=== PATIENT | male | born 1965 | race Caucasian/White ===

== ENCOUNTER 2021-10-06 13:22 | Inpatient (IN) | payer MEDICARE, MEDICAID ==
[~2021-10-06] VITALS: Ht 147.3 cm; Wt 95.0 kg
--- NOTE | 2021-10-06 17:06 | NUR ---
Patient oriented to room and call light. In no acute distress
--- NOTE | 2021-10-06 17:09 | NUR ---
Page Sent to doctor group pager promotional table spacer PAGER ID: [phone] MESSAGE: [id number] Huang. Direct admit just arrived and needs to be assigned a doctor. Thank you Heidy [phone]
[2021-10-06 17:11] VITALS: BP 174/70
[2021-10-06] MEDS ORDERED: acetaminophen 325mg tablet PO PRN (17:40)
[2021-10-06] MEDS ORDERED: morphine 2 MG/ML inj. syringe IV PRN (17:40)
[2021-10-06] MEDS ORDERED: ondansetron/PF 4mg/2ml inj IV PRN (17:40)
[2021-10-06] MEDS ORDERED: mag hydrox/Alum hydrox/simeth 30ml oral suspension PO PRN (17:40)
[2021-10-06] MEDS ORDERED: magnesium hydroxide 30ml (MOM) UD suspension PO PRN (17:40)
[2021-10-06 18:00] VITALS: BP 134/55
--- NOTE | 2021-10-06 18:00 | NUR ---
Patient ripped out IV at shift change
[2021-10-06 18:26] LABS: ALBUMIN 2.1 G/DL (3.4-5.0); ANION GAP 6 (8-16); BLOOD UREA NITROGEN 30 MG/DL (7-18); BUN/CREATININE RATIO 6.6 (5.4-32.0); CALCIUM 8.4 MG/DL (8.5-10.1); CHLORIDE 105 MMOL/L (99-107); CREATININE 4.55 MG/DL (0.60-1.10); GLUCOSE 94 MG/DL (70-104); POTASSIUM 3.8 MMOL/L (3.5-5.1); SODIUM 142 MMOL/L (135-145); TOTAL CARBON DIOXIDE 31.4 MMOL/L (24-32); eGFR 14 ML/MIN
--- NOTE | 2021-10-06 18:26 | NUR ---
Problems reprioritized. Patient report given, questions answered & plan of care reviewed with Neena CORREA . Patient in no acute distress.
[2021-10-06 18:31] LABS: BASOPHILS % (AUTO) 0.9 % (0-1); EOSINOPHILS # (AUTO) 0.3 X10'3 (0-0.9); EOSINOPHILS % (AUTO) 5.5 % (0-6); HEMATOCRIT 30.4 % (42.0-52.0); HEMOGLOBIN 9.5 g/dl (14.0-17.9); LYMPHOCYTES # (AUTO) 1.3 X10'3 (1.1-4.8); LYMPHOCYTES % (AUTO) 25.7 % (21-51); MEAN CORPUSCULAR HEMOGLOBIN 28.3 PG (27.0-31.0); MEAN CORPUSCULAR HGB CONC 31.2 g/dL (33.0-36.5); MEAN CORPUSCULAR VOLUME 90.6 FL (78-98); MONOCYTES # (AUTO) 0.6 X10'3 (0-0.9); MONOCYTES % (AUTO) 11.6 % (2-12); NEUTROPHILS # (AUTO) 2.9 X10'3 (1.8-7.7); NEUTROPHILS % (AUTO) 56.3 % (42-75); PLATELET COUNT 107 X10'3 (140-440); RED BLOOD COUNT 3.36 X10'6 (4.70-6.10); WHITE BLOOD COUNT 5.1 X10'3 (4.5-11.0)
[2021-10-06 18:49] LABS: ANISOCYTOSIS 3+; PLATELET ESTIMATE DECREASED
[2021-10-06 18:50] LABS: ELLIPTOCYTES 1+; TARGET CELLS FEW
[2021-10-06 18:51] LABS: POIKILOCYTOSIS FEW
[2021-10-06] MEDS: heparin, porcine 5000 units/ml vial SQ SCH ×2 (20:00→20:55)
[2021-10-06] MEDS: docusate sod 100mg capsule PO SCH ×2 (20:00→20:55)
[2021-10-07 02:00] VITALS: BP 121/53
[2021-10-07] MEDS ORDERED: LANT1000 PO (02:00)
[2021-10-07] MEDS ORDERED: FENT-90 TOP (02:00)
[2021-10-07] MEDS ORDERED: LANTUS SQ (02:00)
[2021-10-07 06:00] LABS: BASOPHILS # (AUTO) 0.1 X10'3 (0-0.2); BASOPHILS % (AUTO) 0.9 % (0-1); EOSINOPHILS # (AUTO) 0.3 X10'3 (0-0.9); EOSINOPHILS % (AUTO) 5.7 % (0-6); HEMATOCRIT 29.9 % (42.0-52.0); HEMOGLOBIN 9.4 g/dl (14.0-17.9); LYMPHOCYTES # (AUTO) 1.1 X10'3 (1.1-4.8); LYMPHOCYTES % (AUTO) 18.9 % (21-51); MEAN CORPUSCULAR HEMOGLOBIN 28.5 PG (27.0-31.0); MEAN CORPUSCULAR HGB CONC 31.6 g/dL (33.0-36.5); MEAN CORPUSCULAR VOLUME 90.1 FL (78-98); MONOCYTES # (AUTO) 0.7 X10'3 (0-0.9); MONOCYTES % (AUTO) 11.1 % (2-12); NEUTROPHILS # (AUTO) 3.8 X10'3 (1.8-7.7); NEUTROPHILS % (AUTO) 63.4 % (42-75); PLATELET COUNT 94 X10'3 (140-440); RED BLOOD COUNT 3.32 X10'6 (4.70-6.10); RED CELL DISTRIBUTION WIDTH 25.7 % (11.5-14.5)
[2021-10-07 06:19] LABS: ALBUMIN 2.1 G/DL (3.4-5.0); ANION GAP 10 (8-16); BLOOD UREA NITROGEN 34 MG/DL (7-18); BUN/CREATININE RATIO 6.8 (5.4-32.0); CALCIUM 8.6 MG/DL (8.5-10.1); CHLORIDE 103 MMOL/L (99-107); CREATININE 4.98 MG/DL (0.60-1.10); GLUCOSE 94 MG/DL (70-104); POTASSIUM 3.9 MMOL/L (3.5-5.1); SODIUM 142 MMOL/L (135-145); TOTAL CARBON DIOXIDE 28.9 MMOL/L (24-32); eGFR 12 ML/MIN
--- NOTE | 2021-10-07 06:30 | NUR ---
Patient in room PCU 3023. I have received report from Lexii RN and had the opportunity to ask questions and assume patient care. Pt semi fowlers in bed, with hob at 40 degrees, chest rising and falling evenly. breathing even. per lexii, pt up through the night with admit process. per Lexii, pt non compliant with turning, meds, and recently hemodialysis. VQ scan scheduled for today. will educate pt to benefits of following plan of care when pt awake and receptive. safety measures in place. no s/sx acute distress
--- NOTE | 2021-10-07 06:41 | NUR ---
Problems reprioritized. Patient report given, questions answered & plan of care reviewed with SUNNY Yusuf.
[2021-10-07 07:00] VITALS: BP 120/44
[2021-10-07] MEDS ORDERED: normal saline 1000ml 250 ML IV PRN (08:00)
[2021-10-07] MEDS: docusate sod 100mg capsule PO SCH ×2 (08:00→20:23)
[2021-10-07] MEDS ORDERED: heparin 1,000 units/ml 10ml inj IV ONE (08:00)
[2021-10-07] MEDS: heparin, porcine 5000 units/ml vial SQ SCH (08:00)
[2021-10-07] MEDS ORDERED: EPOETIN ALFA-EPBX 20,000 UNIT/ML 1 ML MDV IV ONE (08:00)
[2021-10-07] MEDS ORDERED: LIDOcaine 1% (10mg/ml) 2ml vial SQ ONE (08:00)
[2021-10-07 08:04] LABS: ANISOCYTOSIS 3+; PLATELET ESTIMATE DECREASED
[2021-10-07 08:05] LABS: ELLIPTOCYTES FEW; LARGE PLATELETS FEW; MICROCYTOSIS 1+; TEAR DROP CELLS 1+
[2021-10-07 08:06] LABS: HYPOCHROMASIA 1+
[2021-10-07] MEDS ORDERED: APIX5TAB3 PO (11:50)
--- NOTE | 2021-10-07 13:59 | NUR ---
Justyn consult: Noted score of 12. Wound photos reviewed. Pt w/ bilateral BKA w/ wounds that appeared to be scabbed over, a pressure area/scabbing on penis and redness on sacrum. Pt sees outpatient wound care. Will continue to monitor. Addendum: 10/07/21 at [address] Amended: Links added.
--- NOTE | 2021-10-07 14:47 | NUR ---
WOUND INFECTION EDUCATION PROVIDED BY WOUND CARE 1. Patient instructed to call their primary doctor, or go the ED immediately if any of the following symptoms occur: * Increased pain in wound * Increase in drainage from the wound * Redness in the skin surrounding the wound * Warmth in the skin surrounding the wound * Bleeding from the wound * Temperature of 101 or greater 2. If any of these occur while in the hospital tell a nurse immediately. PRESSURE ULCER EDUCATION: DEFINITION: A pressure ulcer is an area of skin that breaks down when you stay in one position too long. The constant pressure against the skin reduces the blood flow to that area and the affected tissue dies. CAUSES: "Being bedridden or in a wheelchair "Fragile skin "Having a chronic condition, such as diabetes or vascular disease "Inability to move certain parts of your body without assistance "Older age "Incontinence of urine or stool SYMPTOMS: "A reddened area that DOES NOT turn white when pressed on - this can be the beginning of a pressure ulcer "A blister, deep sore or a crater - these can be advanced pressure ulcers FIRST AID: "Relieve the pressure on this area "Keep the area clean and dry "Call your primary doctor if you see any of the above symptoms "DO NOT massage the area "DO NOT use a donut shaped or ring shaped pillow- these actually interfere with the blood flow and cause complications PREVENTION: "Check for pressure ulcers everyday "Change position at least every two hours to relieve pressure "Use items that help relieve pressure- pillows, sheepskin, foam padding, and powders. "Keep skin clean and dry "Eat healthy well balanced meals "Exercise daily IF YOU SEE ANY OF THESE SYMPTOMS WHILE IN THE HOSPITAL - TELL YOUR NURSE IMMEDIATELY. IF YOU SEE ANY OF THESE SYMPTOMS WHILE AT HOME OR HAVE ANY QUESTIONS OR CONCERNS ABOUT PRESSURE ULCERS - CALL YOUR PRIMARY DOCTOR IMMEDIATELY. Addendum: 10/07/21 at 1448 by Sherrie Corado RN Amended: Links added.
[2021-10-07] MEDS ORDERED: fentaNYL 12 MCG/hour patch.TD72 TD SCH (16:07)
[2021-10-07] MEDS ORDERED: LANTHANUM CARBONATE 1000 MG PO PRN (16:20)
[2021-10-07] MEDS ORDERED: LANTHANUM CARBONATE 1000 MG PO SCH (18:00)
[2021-10-07 18:25] VITALS: BP 99/35
--- NOTE | 2021-10-07 18:28 | NUR ---
Problems reprioritized. Patient report given, questions answered & plan of care reviewed with Zuleyma Sood RN. Pt completing HD.
--- NOTE | 2021-10-07 18:30 | NUR ---
Patient in room PCU 3028. I have received report from Madelin CORREA and had the opportunity to ask questions and assume patient care.
[2021-10-07] MEDS ORDERED: apixaban 5mg tablet PO SCH (20:00)
[2021-10-07 22:00] VITALS: BP 110/58
[2021-10-08] MEDS: morphine 2 MG/ML inj. syringe IV PRN ×2 (01:03→13:20)
[2021-10-08 02:00] VITALS: BP 116/52
--- NOTE | 2021-10-08 04:43 | NUR ---
pt's morphine 2mg/ml 1701 reassessment not done by previous shift.
[2021-10-08 06:20] LABS: ALBUMIN 2.2 G/DL (3.4-5.0); ANION GAP 7 (8-16); BLOOD UREA NITROGEN 18 MG/DL (7-18); BUN/CREATININE RATIO 5.2 (5.4-32.0); CALCIUM 8.6 MG/DL (8.5-10.1); CHLORIDE 102 MMOL/L (99-107); CREATININE 3.43 MG/DL (0.60-1.10); GLUCOSE 83 MG/DL (70-104); SODIUM 139 MMOL/L (135-145); eGFR 19 ML/MIN
[2021-10-08 06:24] LABS: BASOPHILS # (AUTO) 0.1 X10'3 (0-0.2); BASOPHILS % (AUTO) 1.2 % (0-1); EOSINOPHILS # (AUTO) 0.3 X10'3 (0-0.9); EOSINOPHILS % (AUTO) 4.1 % (0-6); HEMATOCRIT 30.2 % (42.0-52.0); HEMOGLOBIN 9.6 g/dl (14.0-17.9); LYMPHOCYTES # (AUTO) 1.1 X10'3 (1.1-4.8); LYMPHOCYTES % (AUTO) 17.4 % (21-51); MEAN CORPUSCULAR HEMOGLOBIN 28.3 PG (27.0-31.0); MEAN CORPUSCULAR HGB CONC 31.8 g/dL (33.0-36.5); MEAN CORPUSCULAR VOLUME 89.1 FL (78-98); MEAN PLATELET VOLUME 8.1 FL (7.4-10.4); MONOCYTES # (AUTO) 0.7 X10'3 (0-0.9); NEUTROPHILS # (AUTO) 4.1 X10'3 (1.8-7.7); NEUTROPHILS % (AUTO) 66.3 % (42-75); PLATELET COUNT 81 X10'3 (140-440); RED BLOOD COUNT 3.39 X10'6 (4.70-6.10); RED CELL DISTRIBUTION WIDTH 25.6 % (11.5-14.5); WHITE BLOOD COUNT 6.2 X10'3 (4.5-11.0)
[2021-10-08 07:00] VITALS: BP 114/42
--- NOTE | 2021-10-08 07:59 | NUR ---
Patient in room PCU 3028. I have received report from Zuleyma Sood and had the opportunity to ask questions and assume patient care. Pt supine in bed, chest rising and falling evenly. safety measures in place. no s/sx acute distress
[2021-10-08] MEDS ORDERED: insulin glargine (Lantus) pen - multi-dose SQ SCH (08:00)
--- NOTE | 2021-10-08 08:30 | NUR ---
Pt refused morning meds.
[2021-10-08] MEDS ORDERED: normal saline 1000ml 250 ML IV PRN (09:05)
[2021-10-08] MEDS ORDERED: EPOETIN ALFA-EPBX 20,000 UNIT/ML 1 ML MDV IV ONE (09:05)
[2021-10-08] MEDS ORDERED: LIDOcaine 1% (10mg/ml) 2ml vial SQ ONE (09:05)
[2021-10-08] MEDS ORDERED: heparin 1,000 units/ml 10ml inj IV ONE (09:05)
[2021-10-08 10:34] LABS: ANISOCYTOSIS 3+; LARGE PLATELETS FEW; PLATELET ESTIMATE DECREASED
[2021-10-08 10:35] LABS: ELLIPTOCYTES FEW
[2021-10-08 11:00] VITALS: BP 132/59
[2021-10-08 11:13] LABS: HBSAG SCREEN Negative (Negative)
[2021-10-08] MEDS ORDERED: COVID-19 VACCINE,AD26(JANSSEN/J&J)adenovirus/PF 0.5 ML SYRINGE IMVAC ONE (12:05)
--- NOTE | 2021-10-08 13:45 | NUR ---
Pt stable for transfer per MD orders. Report called to Blaire CORREA at [facility] . all questions answered. PIV discontinued. Cannula intact. Telemetry discontinued. belongings collected and pt 4 person transferred to [facility]. pt left at 1335 without s/sx acute distress accompanied by ambulance staff.
== END 2021-10-08 13:35 | DRG 189 ==
LOC: PCU 3S 16:58 → UNDOADMIN 16:58 → PCU 3S 17:42
PROVIDERS: ADMIT Internal Medicine; ATTEND Internal Medicine
PROC: CB121ZZ Planar Nuclear Medicine Imaging of Lungs and Bronchi using Technetium 99m (Tc-99m) (ICD-10-PCS; 2021-10-07)
PROC: 5A1D70Z Performance of Urinary Filtration, Intermittent, Less than 6 Hours Per Day (ICD-10-PCS; 2021-10-07)
PROC: XW023U6 Introduction of COVID-19 Vaccine into Muscle, Percutaneous Approach, New Technology Group 6 (ICD-10-PCS; principal; 2021-10-08)
DX: J96.01 Acute respiratory failure with hypoxia (principal); N18.6 End stage renal disease; I26.99 Other pulmonary embolism without acute cor pulmonale; I12.0 Hypertensive chronic kidney disease with stage 5 chronic kidney disease or end stage renal disease; D63.8 Anemia in other chronic diseases classified elsewhere; E11.22 Type 2 diabetes mellitus with diabetic chronic kidney disease; E11.40 Type 2 diabetes mellitus with diabetic neuropathy, unspecified; E11.51 Type 2 diabetes mellitus with diabetic peripheral angiopathy without gangrene; M79.7 Fibromyalgia; Z89.511 Acquired absence of right leg below knee; Z89.512 Acquired absence of left leg below knee; Z99.2 Dependence on renal dialysis; Z23 Encounter for immunization; Z88.2 Allergy status to sulfonamides; Z88.8 Allergy status to other drugs, medicaments and biological substances
CPT/HCPCS: 0031A; 36415; 78582; 80048; 82948; 85008; 85025; 87340; 91303; A9539; A9540; G0257; G0378; J1644; J1815; J2001; J2270; Q4081